=== PATIENT | female | born 1960 | race Caucasian/White ===

== ENCOUNTER 2023-11-21 10:24 | Emergency (ER) | payer BC, SELFPAY ==
--- NOTE | ~2023-11-21 | XR_ITS ---
EXAMINATION: XR hand RT min 3V INDICATION: Right hand pain TECHNIQUE: Three views of the right hand are obtained. COMPARISON: None available FINDINGS: There is a transverse fracture of the distal radius, as described on wrist radiographs. No fracture of the hand is identified. There is moderate osteoarthritis involving multiple interphalange al joints. Soft tissues are unremarkable. IMPRESSION: 1. No acute osseous abnormality of the hand. 2. Transverse distal radius fracture, CT wrist report. Reviewed, dictated and finalized at location L. HOLE DIGGING MACHINE OPERATOR
--- NOTE | ~2023-11-21 | XR_ITS ---
EXAMINATION: XR wrist RT min 3V INDICATION: Right wrist pain, initial encounter TECHNIQUE: Four views of the right wrist are obtained. COMPARISON: None available FINDINGS: There is an acute, traumatic, closed, mildly comminuted transverse fracture of the distal r adius. No additional fracture is identified. There is soft tissue swelling surrounding the radius fra cture. Degenerative changes are noted in the distal ulna. IMPRESSION: 1. Acute, mildly comminuted transverse fracture of the distal radius. Reviewed, dictated and finalized at location L. IANCE TECHNICIAN
[2023-11-21 10:55] VITALS: BP 117/68; PULSE 84; RESP 18; TEMP 36.8; O2SAT 100
[2023-11-21 11:00] VITALS: BP 117/68; PULSE 84; RESP 18; TEMP 36.8; O2SAT 100
--- NOTE | 2023-11-21 11:08 | ED.UPPEXIN ---
HPI - Extremity Injury (Upper) General Chief Complaint: Extremity Injury, Upper Stated Complaint: swollen rt hand Source: patient, RN notes reviewed and old records reviewed Mode of arrival: ambulatory Limitations: no limitations History of Present Illness HPI narrative: 63-year-old female presents to [facility] with complaint right hand and wrist pain status post fall 529. Patient endorses that she took 600 mg of ibuprofen at 9:00 a.m. Patient is reporting pain 7/10 with movement. Patient endorses no pain when at rest. Patient reports that she tripped over an unknown object when ambulating to her mailbox this morning. Patient denies striking her head during fall, denies LOC. Patient denies any other falls within the last 6 months. patient endorses history of ADD, osteoporosis, depression, GERD and high cholesterol. Allergy to Neosporin, latex, and penicillin; reaction to all 3 is a rash. Patient is alert and oriented x3 upon arrival. No signs of distress. No obvious deformity noted. Family member with patient. Related Data Home Medications Medication Instructions Recorded Confirmed bupropion HCl 150 mg tablet,12 hr mg PO 11/21/23 sustained-release dextroamphetamine-amphetamine ER PO 11/21/23 30 mg 24hr capsule,extend release ibandronate 150 mg tablet mg PO 11/21/23 omeprazole 20 mg capsule,delayed mg 11/21/23 release pravastatin 10 mg tablet mg 11/21/23 Allergies Allergy/AdvReac Type Severity Reaction Status Date / Time latex Allergy Hives Verified 11/21/23 10:59 miconazole Allergy Hives Verified 11/21/23 10:59 [From Neosporin AF] Penicillins Allergy Hives Verified 11/21/23 10:59 Review of Systems Review of Systems: All systems reviewed & are unremarkable except as noted in HPI and below Constitutional: Constitutional: Reports no additional constitutional complaints Eyes: Eyes: Reports no additional eye complaints ENT: Reports system reviewed and no additional complaints, except as documented Cardiovascular: Cardiovascular: Reports no additional cardiovascular complaints, Denies chest pain and Denies dyspnea Respiratory: Respiratory: Reports no additional respiratory complaints, Denies cough and Denies dyspnea Musculoskeletal: Musculoskeletal: Reports as per HPI, Denies deformity, Reports arthralgias (right hand; right wrist), Reports joint swelling ( Right hand; right wrist) and Denies numbness Neurologic: Reports system reviewed and no additional complaints, except as documented, Denies dizziness, Denies numbness and Denies weakness Psychiatric: Psychiatric: Reports no additional psychiatric complaints PMFSH Comments At the time of my signature, I reviewed and agree with the nursing past medical, surgical, social, and family history. There is no relevant family history pertinent to the patient complaint. Exam Const: General: cooperative, healthy appearing, comfortable, no acute distress, alert and well nourished Nutritional Appearance: well nourished Orientation/consciousness: patient oriented x3 Limitations: no limitations HENMT: Head: normal to inspection Ears: external ears normal Face/Nose/Sinus: Normal external nose present, Normal nares present, normal facial exam, No erythema and No edema Face and sinus: normal facial exam, no erythema and no edema Mouth: Yes Normal oral and palatal mucosa present Eyes: General: appearance normal, both eyes and all related structures Neck: Neck: normal visual inspection, full ROM and no meningeal signs Lymphatic: no lymphadenopathy noted and no lymphedema noted Chest: Chest palpation & inspection: normal inspection of the chest Resp: Effort & Inspection: normal respiratory effort and able to speak in complete sentences Auscultation: clear to auscultation bilaterally Cardio: Jugular venous distension: no JVD Rate: regular rate Rhythm: regular rhythm Peripheral pulses: Peripheral pulses 2+ throughout Back/Spine/Pelvis:
== END 2023-11-21 12:18 | disposition home or self-care (01) ==
PROVIDERS: Emergency Provider Nurse Practitioner Family; PCP Registered Nurse
DX: S52.591A Other fractures of lower end of right radius, initial encounter for closed fracture (principal); W01.0XXA Fall on same level from slipping, tripping and stumbling without subsequent striking against object, initial encounter; M81.0 Age-related osteoporosis without current pathological fracture; K21.9 Gastro-esophageal reflux disease without esophagitis; E78.00 Pure hypercholesterolemia, unspecified
CPT/HCPCS: 29125; 73110; 73130; 99214; A4565; G0463